=== PATIENT | female | born 1985 | race Caucasian/White ===

== ENCOUNTER 2018-02-26 12:54 | Inpatient (IN) | payer BC ==
[2018-02-25 14:22] LABS: Urine Bacteria NONE SEEN /hpf (None Seen); Urine Blood 1+ /uL (Negative); Urine Specific Gravity 1.017 (1.001-1.035); Urine WBC 1 /hpf (0 - 5)
[2018-02-25 14:26] LABS: Basophils # (auto) 0 uL; Basophils % (auto) 0.3 % (0.0-2.0); Eosinophils # (auto) 0.2 uL; Eosinophils % (auto) 1.7 % (0.0-7.0); Hematocrit 41.3 % (36.0-46.0); Hemoglobin 14.2 g/dL (12.2-16.2); Lymphocytes # (auto) 2.7 uL; Lymphocytes % (auto) 29.5 % (10.0-50.0); Mean Corpuscular Hemoglobin 33.1 pg (28.0-32.0); Mean Corpuscular Hgb Conc. 34.3 g/dL (32.0-36.0); Mean Corpuscular Volume 96.6 fL (80.0-100.0); Monocytes # (auto) 0.5 uL; Monocytes % (auto) 5.6 % (0.0-12.0); Neutrophils # (auto) 5.8 uL; Neutrophils % (auto) 62.9 % (37.0-80.0); Nucleated Red Blood Cells % 0.2 %; Platelet Count (auto) 243 10^3/uL (140-450); Red Blood Cells 4.27 10^6/uL (4.0-5.20); White Blood Cell 9.3 10^3/uL (4.4-10.8)
[2018-02-25 14:45] LABS: Albumin 3.8 g/dL (3.4-5.0); BUN/Creatinine Ratio 25.8; Calcium 8.5 mg/dL (8.5-10.1); Potassium 3.8 mmol/L (3.5-5.1)
[2018-02-25 14:47] LABS: Bilirubin, Total 0.3 mg/dL (0.2-1.0); Total Protein 7.2 g/dL (6.4-8.2)
[2018-02-25 15:01] LABS: INR 0.95 (0.9-1.15); Partial Thromboplastin Time 27.5 sec (23.78-33.04); Prothrombin Time 10.2 sec (9.27-12.13)
[~2018-02-26] VITALS: Ht 160 cm; Wt 63.1 kg
[~2018-02-26 12:54] MED LIST: HYDR-4683 PO; PRO20T PO; SERT-135 PO
[2018-02-26] MEDS ORDERED: TRANEXAMIC ACID 0 ML ONE (13:11)
[2018-02-26] MEDS ORDERED: BUPIVACAINE W/ EPINEPH 0.25% INJ 50ML MDV ONE (13:11)
[2018-02-26] MEDS ORDERED: MORPHINE SULF(PF) 0.5MG/ML 10ML VIAL ONE (13:18)
[2018-02-26] MEDS ORDERED: KETOROLAC TROMETH 30 MG/ML 1ML VIAL ONE ×2 (13:18→15:37)
[2018-02-26] MEDS ORDERED: VANCOMYCIN HCL 1000 MG VL ONE (13:21)
[2018-02-26] MEDS ORDERED: ceFAZolin 1GM/50ML 50 ML IV ONE (13:39)
[2018-02-26] MEDS ORDERED: MIDAZOLAM HCL 1MG/1ML-2 ML VIAL ONE (14:01)
[2018-02-26] MEDS ORDERED: fentaNYL CITRATE 5 ML ONE (14:02)
[2018-02-26] MEDS ORDERED: PROPOFOL 10 MG/ML 20 ML IV ONE (14:12)
[2018-02-26] MEDS ORDERED: HYDROmorphone HCL 2 MG/ML VL IV ONE (15:35)
[2018-02-26] MEDS ORDERED: HYDROmorphone HCL 2 MG/ML VL ONE (15:37)
[2018-02-26] MEDS: HYDROmorphone HCL 2 MG/ML VL IV PRN ×6 (15:40→16:50)
[2018-02-26] MEDS ORDERED: hydrALAZINE HCL 20 MG/ML VL IV PRN (15:45)
[2018-02-26] MEDS ORDERED: ePHEDrine SULFATE 50 MG/ML AMP IV PRN (15:45)
[2018-02-26] MEDS ORDERED: KETOROLAC TROMETH 30 MG/ML 1ML VIAL IV ONE (15:45)
[2018-02-26] MEDS ORDERED: ONDANSETRON HCL 4 MG/2 ML VIAL IV ONE (15:45)
[2018-02-26] MEDS: LACTATED RINGER'S 1,000 ML IV SCH (17:10)
[2018-02-26] MEDS ORDERED: MORPHINE SULFATE 4 MG/ML SYR/VIAL IV PRN (17:15)
[2018-02-26] MEDS ORDERED: NITROGLYCERIN 0.4 MG SL TAB SL PRN (17:15)
[2018-02-26] MEDS ORDERED: ONDANSETRON HCL 4 MG/2 ML VIAL IV PRN (17:15)
[2018-02-26] MEDS ORDERED: ACETAMINOPHEN 325 MG TAB PO PRN (17:15)
[2018-02-26] MEDS: OXYCODONE W/ ACETAMINOPHEN 5/325MG TABLET PO PRN (19:07)
[2018-02-26] MEDS: ceFAZolin 1GM/50ML 50 ML IV SCH (19:43)
[2018-02-26] MEDS ORDERED: IBUP800T24 PO (20:30)
[2018-02-26] MEDS: MORPHINE SULFATE 4 MG/ML SYR/VIAL IV PRN (20:55)
[2018-02-26 21:23] VITALS: BP 120/77
[2018-02-26] MEDS: SODIUM CHLOR 0.9% PF (SALINE LOCK) 10ML VIAL/SYR IV SCH (21:58)
[2018-02-26] MEDS: DOCUSATE SOD 100 MG CAP PO SCH (21:58)
[2018-02-26] MEDS: oxyCODONE ER 10 MG TAB PO SCH (21:59)
[2018-02-26] MEDS ORDERED: PROPRANOLOL HCL 20 MG TAB PO SCH (22:00)
[2018-02-27] MEDS ORDERED: KETOROLAC TROMETH 30 MG/ML 1ML VIAL IV ONE (00:15)
[2018-02-27] MEDS: ceFAZolin 1GM/50ML 50 ML IV SCH ×2 (01:46→08:54)
[2018-02-27] MEDS: LACTATED RINGER'S 1,000 ML IV SCH (01:46)
[2018-02-27] MEDS: OXYCODONE W/ ACETAMINOPHEN 5/325MG TABLET PO PRN (01:47)
[2018-02-27] MEDS: MORPHINE SULFATE 4 MG/ML SYR/VIAL IV PRN (04:41)
[2018-02-27 05:18] VITALS: BP 100/59
[2018-02-27] MEDS: SODIUM CHLOR 0.9% PF (SALINE LOCK) 10ML VIAL/SYR IV SCH (06:02)
[2018-02-27 08:00] VITALS: BP 95/60
[2018-02-27 08:30] VITALS: BP 95/60
[2018-02-27] MEDS: DOCUSATE SOD 100 MG CAP PO SCH (08:53)
[2018-02-27] MEDS: oxyCODONE ER 10 MG TAB PO SCH (08:54)
[2018-02-27] MEDS ORDERED: SERTRALINE HCL 50 MG TAB PO SCH (10:00)
== END 2018-02-27 11:45 | disposition home or self-care (01) | DRG 502 ==
LOC: SUR 12:54 → WEST WING 12:55 → EDBD 13:45
PROVIDERS: ADMIT Orthopaedic Surgery Adult Reconstructive Orthopaedic Surgery; ATTEND Family Medicine
PROC: 0LQR0ZZ Repair Left Knee Tendon, Open Approach (ICD-10-PCS; principal; 2018-02-26 13:54)
DX: S82.092A Other fracture of left patella, initial encounter for closed fracture (principal); W01.0XXA Fall on same level from slipping, tripping and stumbling without subsequent striking against object, initial encounter; F32.9 Major depressive disorder, single episode, unspecified; S76.112A Strain of left quadriceps muscle, fascia and tendon, initial encounter; Y93.89 Activity, other specified; Y92.89 Other specified places as the place of occurrence of the external cause; Y99.8 Other external cause status
CPT/HCPCS: 36415; 80053; 81001; 84702; 85025; 85610; 85730; 97163; G0378; J0690; J1885; J2250; J2405; J2704

== ENCOUNTER → 2018-06-10 | Outpatient (CLI) | payer BC ==
[~2018-06-10] MED LIST changes: -HYDR-4683 PO
[2018-06-10 08:23] LABS: Basophils # (auto) 0.1 uL; Basophils % (auto) 1.7 % (0.0-2.0); Eosinophils # (auto) 0 uL; Eosinophils % (auto) 0.5 % (0.0-7.0); Hematocrit 41.3 % (36.0-46.0); Lymphocytes # (auto) 2.2 uL; Lymphocytes % (auto) 34.4 % (10.0-50.0); Mean Corpuscular Hemoglobin 31.9 pg (28.0-32.0); Mean Corpuscular Volume 93.7 fL (80.0-100.0); Monocytes # (auto) 0.4 uL; Monocytes % (auto) 5.8 % (0.0-12.0); Neutrophils # (auto) 3.8 uL; Neutrophils % (auto) 57.6 % (37.0-80.0); Platelet Count (auto) 229 10^3/uL (140-450); Red Blood Cells 4.41 10^6/uL (4.0-5.20); Red Cell Distribution Width 13.2 % (11.8-14.3); White Blood Cell 6.5 10^3/uL (4.4-10.8)
[2018-06-10 08:24] LABS: Urine Bacteria FEW /hpf (None Seen); Urine Blood 1+ /uL (Negative); Urine Specific Gravity 1.021 (1.001-1.035); Urine WBC 1 /hpf (0 - 5)
[2018-06-10 08:40] LABS: Calcium 8.7 mg/dL (8.5-10.1); Potassium 4.3 mmol/L (3.5-5.1)
[2018-06-10 08:47] LABS: Albumin 3.9 g/dL (3.4-5.0); BUN/Creatinine Ratio 20.8; Bilirubin, Total 0.6 mg/dL (0.2-1.0); Total Protein 7.4 g/dL (6.4-8.2); Uric Acid 5.1 mg/dL (2.6-6.0)
[2018-06-10 08:56] LABS: Folate (Folic Acid) > 24.00 ng/mL (5.38-24)
== END | disposition home or self-care (01) ==
LOC: LAB 08:01
PROVIDERS: ATTEND Nurse Practitioner
DX: E78.5 Hyperlipidemia, unspecified (principal)
CPT/HCPCS: 36415; 80053; 80061; 81001; 82306; 82607; 82746; 83036; 84443; 84550; 85025